=== PATIENT | female | born 1995 | race Caucasian/White ===

== ENCOUNTER 2017-12-04 14:15 | Emergency (ER) | payer MEDICAID ==
[2017-12-04] MEDS ORDERED: epiNEPHrine 1 mg/ml inj SQ STA (14:24)
[2017-12-04] MEDS ORDERED: methylPREDNISolone sod succ 125mg/2ml vial IV ONE (14:25)
[2017-12-04] MEDS ORDERED: diphenhydrAMINE 50 mg/ml inj IV ONE (14:25)
[2017-12-04] MEDS ORDERED: normal saline 1000ML IV soln IVB ONE (14:25)
[2017-12-04] MEDS ORDERED: tranexamic acid 100mg/ml inj. IV ONE (14:35)
[2017-12-04] MEDS ORDERED: tranexamic acid inj. 810 MG in normal saline 100ml IV soln 91.9 ML IV ONE (14:40)
[2017-12-04] MEDS ORDERED: EPIN0.3P8 IM (15:14)
[2017-12-04] MEDS ORDERED: sucralfate 1 gm tablet PO ONE (15:35)
[2017-12-04] MEDS ORDERED: mag hydrox/Alum hydrox/simeth 30ml oral suspension PO ONE (15:35)
[2017-12-04] MEDS ORDERED: metoclopramide 10mg tablet PO ONE (15:35)
[2017-12-04] MEDS ORDERED: LIDOcaine Viscous 15ml cup PO ONE (15:35)
[2017-12-04] MEDS ORDERED: famotidine 20mg tablet PO ONE (15:35)
[2017-12-04 15:54] VITALS: BP 128/68
== END 2017-12-04 15:56 | disposition home or self-care (01) ==
LOC: ER 14:16
DX: T78.05XA Anaphylactic reaction due to tree nuts and seeds, initial encounter (principal); G43.909 Migraine, unspecified, not intractable, without status migrainosus; Z88.2 Allergy status to sulfonamides; Z79.899 Other long term (current) drug therapy
CPT/HCPCS: 96365; 96372; 96375; 99284; J0171; J1200; J2930; J7030; J8597

== ENCOUNTER 2018-07-07 11:37 | Emergency (ER) | payer MEDICAID ==
[~2018-07-07] VITALS: Ht 170.2 cm; Wt 82.5 kg
[~2018-07-07 11:37] MED LIST: EPIN0.3P8 IM
[2018-07-07 11:41] VITALS: BP 133/82
[2018-07-07 12:15] LABS: CLARITY,URINE SLIGHTLY CLOUDY (Clear); COLOR,URINE STRAW (Yellow); GLUCOSE, URINE NEGATIVE (Neg); KETONES,URINE NEGATIVE (Neg); LEUKOCYTE ESTERASE ,URINE NEGATIVE (Neg); NITRITES, URINE NEGATIVE (Neg); OCCULT BLOOD,URINE NEGATIVE (Neg); PH,URINE 6.5 (4.8-8.0); PROTEIN,URINE NEGATIVE (Neg); UROBILINOGEN,URINE 0.2 E.U/dL (0.2-1.0)
[2018-07-07 12:16] LABS: URINE HCG NEGATIVE (NEG)
[2018-07-07 12:24] LABS: UA COLLECTION TYPE CLN CATCH MIDSTREAM
[2018-07-07 12:27] LABS: BACTERIA,URINE 1+ /HPF (Neg); MUCUS STRANDS NONE SEEN /LPF (Neg); RBC,URINE NONE SEEN /HPF (0-2); SQUAMOUS EPITHELIAL CELL,UR FEW /LPF (FEW); WBC,URINE 0-4 /HPF (0-4)
[2018-07-07 12:35] LABS: BASOPHILS % (AUTO) 0.5 % (0-1); EOSINOPHILS # (AUTO) 0.3 X10'3 (0-0.9); EOSINOPHILS % (AUTO) 5.7 % (0-6); HEMATOCRIT 44.7 % (35.0-45.0); HEMOGLOBIN 14.9 g/dl (12.0-16.0); LYMPHOCYTES # (AUTO) 1.4 X10'3 (1.1-4.8); MEAN CORPUSCULAR HGB CONC 33.2 g/dL (33.0-36.5); MEAN CORPUSCULAR VOLUME 93.4 FL (78-98); MEAN PLATELET VOLUME 7.5 FL (7.4-10.4); MONOCYTES # (AUTO) 0.4 X10'3 (0-0.9); MONOCYTES % (AUTO) 8.4 % (2-12); NEUTROPHILS # (AUTO) 2.3 X10'3 (1.8-7.7); NEUTROPHILS % (AUTO) 54.4 % (42-75); PLATELET COUNT 343 X10'3 (140-440); RED BLOOD COUNT 4.79 X10'6 (4.20-5.60); WHITE BLOOD COUNT 4.4 X10'3 (4.5-11.0)
[2018-07-07 13:07] LABS: ALANINE AMINOTRANSFERASE 17 U/L (12-78); ALKALINE PHOSPHATASE 79 IU/L (46-116); ANION GAP 10 (8-16); ASPARTATE AMINO TRANSFERASE 16 U/L (10-37); BILIRUBIN,TOTAL 0.3 MG/DL (0.1-1.0); BLOOD UREA NITROGEN 6 MG/DL (7-18); BUN/CREATININE RATIO 7.1 (6.6-38.0); CALCIUM 9.8 MG/DL (8.5-10.1); CHLORIDE 105 MMOL/L (99-107); CREATININE 0.84 MG/DL (0.40-0.90); GLUCOSE 80 MG/DL (70-104); SODIUM 141 MMOL/L (135-145); eGFR 85 ML/MIN
[2018-07-07 13:08] LABS: POTASSIUM 3.8 MMOL/L (3.5-5.1)
[2018-07-07] MEDS ORDERED: ONDA4TAB12 PO (13:57)
[2018-07-07] MEDS ORDERED: BUTA-281 PO (13:57)
== END 2018-07-07 14:12 | disposition home or self-care (01) ==
LOC: ER 11:37
DX: G43.909 Migraine, unspecified, not intractable, without status migrainosus (principal); R19.7 Diarrhea, unspecified; R50.9 Fever, unspecified; J45.909 Unspecified asthma, uncomplicated; Z88.2 Allergy status to sulfonamides
CPT/HCPCS: 36415; 80053; 81001; 81025; 85025; 99283